=== PATIENT | female | born 1990 | race Caucasian/White ===

== ENCOUNTER 2016-10-31 07:45 | Emergency (ER) | payer BC ==
[2016-10-31 08:02] VITALS: BP 144/83
--- NOTE | 2016-10-31 08:44 | EDM.PDOC ---
ED HPI ENT - General Chief Complaint: ENT Problem Stated Complaint: FEVER,CHILLS, COUGH, SORE THROAT Time Seen by Provider: 10/31/16 07:54 Source of Information: Reports: Patient History Limitations: Reports: No limitations - History of Present Illness INITIAL COMMENTS - FREE TEXT/NARRATIVE: History of present illness: [] Patient at 2 days of cold symptoms with cough, sore throat, fevers and chills. She has had strep several times the past and has been to hold that if she gets strep again she will need her tonsils taken out. Review of systems: As per history of present illness and below otherwise all systems reviewed and negative. Past medical history: As per history of present illness and as reviewed below otherwise noncontributory. Surgical history: As per history of present illness and as reviewed below otherwise noncontributory. Social history: No reported history of drug or alcohol abuse. Family history: As per history of present illness and as reviewed below otherwise noncontributory. Physical exam: General: Well developed, well nourished in NAD HEENT: Atraumatic, normocephalic, pupils reactive, negative for conjunctival pallor or scleral icterus, mucous membranes moist, throat clear, no exudate or erythema, neck supple, nontender, trachea midline. No stridor Lungs: Clear to auscultation, breath sounds equal bilaterally, chest nontender. Heart: S1S2, regular, negative for clicks, rubs, or JVD. Abdomen: Soft, nondistended, nontender. Negative for masses or hepatosplenomegaly. Negative for costovertebral tenderness. Pelvis: Stable nontender. Genitourinary: Deferred. Rectal: Deferred. Extremities: Atraumatic, negative for cords or calf pain. Neurovascular unremarkable. Neuro: Awake, alert, oriented. Cranial nerves II through XII unremarkable. Cerebellum unremarkable. Motor and sensory unremarkable throughout. Exam nonfocal. Diagnostics: [] Rapid strep negative Therapeutics: [] Impression: [] Viral URI Plan: [] Motrin and/or Tylenol for fevers and pain. Followup PMD return if symptoms worsen Definitive disposition and diagnosis as appropriate pending reevaluation and review of above. - Related Data Allergies/ADRs: Allergies Allergy/AdvReac Type Severity Reaction Status Date / Time Penicillins Allergy Hives Verified 04/08/16 08:00 Home Meds: Home Meds . [No Known Home Meds] 04/08/16 [History] Past Medical History - Past Health History Medical/Surgical History: Denies Medical/Surgical History Psychiatric History: Reports: None - Infectious Disease History Infectious Disease History: Reports: None Social & Family History - Family History Family Medical History: Noncontributory - Tobacco Use Smoking Status *Q: Current Every Day Smoker Years of Tobacco use: 5 Packs/Tins Daily: 0.5 Second Hand Smoke Exposure: No - Caffeine Use Caffeine Use: Reports: Coffee, Energy drinks - Recreational Drug Use Recreational Drug Use: No ED ROS ENT - Review of Systems Review Of Systems: See Below (See history of present illness) ED EXAM, ENT - Physical Exam Exam: See Below (See history of present illness) Course - Vital Signs Last Recorded V/S: Last Vital Signs Temp 36.4 C 10/31/16 07:56 Pulse 107 H 10/31/16 07:56 Resp 18 10/31/16 07:56 BP 144/83 H 10/31/16 07:56 Pulse Ox 95 10/31/16 07:56 - Orders/Labs/Meds Orders: Active Orders 24 hr Category Date Time Status CULTURE STREP A CONFIRMATION [RM] Stat Lab 10/31/16 08:14 Results STREP SCRN A RAPID W CULT CONF [RM] Stat Lab 10/31/16 08:14 Results Departure - Departure Time of Disposition: 08:43 Disposition: Home, Self-Care 01 Condition: good Clinical Impression: Viral URI Forms: ED Department Discharge Additional Instructions: The following information is given to patients seen in the emergency department who are being discharged to home. This information is to outline your options for follow-up care. We provide all patients seen in our emergency department with a follow-up referral. The need for follow-up, as well as the timing and circumstances, are variable depending upon the specifics of your emergency department visit. If you don't have a primary care physician on staff, we will provide you with a referral. We always advise you to contact your personal physician following an emergency department visit to inform them of the circumstance of the visit and for follow-up with them and/or the need for any referrals to a consulting specialist. The emergency department will also refer you to a specialist when appropriate. This referral assures that you have the opportunity for follow-up care with a specialist. All of these measure are taken in an effort to provide you with optimal care, which includes your follow-up. Under all circumstances we always encourage you to contact your private physician who remains a resource for coordinating your care. When calling for follow-up care, please make the office aware that this follow-up is from your recent emergency room visit. If for any reason you are refused follow-up, please contact the [facility] Emergency Department at and asked to speak to the emergency department charge nurse. Tylenol or Motrin for pain followup PMD [facility] [address] [place] [id number] - My Orders Last 24 Hours: My Active Orders 10/31/16 08:14 CULTURE STREP A CONFIRMATION [RM] Stat STREP SCRN A RAPID W CULT CONF [RM] Stat - Assessment/Plan Last 24 Hours: My Active Orders 10/31/16 08:14 CULTURE STREP A CONFIRMATION [RM] Stat STREP SCRN A RAPID W CULT CONF [RM] Stat
== END 2016-10-31 08:55 | disposition home or self-care (01) ==
LOC: MW.ED 07:45
DX: J06.9 Acute upper respiratory infection, unspecified (principal); B97.89 Other viral agents as the cause of diseases classified elsewhere; F17.210 Nicotine dependence, cigarettes, uncomplicated; Z88.0 Allergy status to penicillin
CPT/HCPCS: 87081; 87880; 99282; 99283

== ENCOUNTER 2017-07-21 11:04 | Emergency (ER) | payer BC ==
--- NOTE | 2017-07-21 11:32 | EDM.PDOC ---
ED HPI GENERAL MEDICAL PROBLEM - General Chief Complaint: Abdominal Pain Stated Complaint: ABDOMINAL PAIN Time Seen by Provider: 07/21/17 11:28 Source of Information: Reports: Patient History Limitations: Reports: No Limitations - History of Present Illness INITIAL COMMENTS - FREE TEXT/NARRATIVE: HISTORY AND PHYSICAL: []27-year-old female presenting with abdominal pain History of Present Illness: []She's noticed this pain for the last day and half denies any changes in bowel habits Review of Systems: As per history of present illness and below otherwise all systems reviewed and negative. Past medical history: As per history of present illness and as reviewed below otherwise noncontributory. Surgical history: As per history of present illness and as reviewed below otherwise noncontributory. Social history: No reported history of drug or alcohol abuse. Family history: As per history of present illness and as reviewed below otherwise noncontributory. Physical exam: Alert and oriented female speaking in full sentences she is quite uncomfortable. No shortness of breath with speaking HEENT: Atraumatic, normocehpalic, pupils reactive, negative for conjunctival pallor or scleral icterus, mucous membranes moist, throat clear, neck supple, nontender, trachea midline. Tympanic membranes without erythema throat is clear Lungs: Clear to auscultation, breath sounds equal bilaterally, chest non tender. Good inspiratory expiratory effort is appreciated Heart: S1S2, regular, negative for clicks, rubs, or JVD. Abdomen: Soft, nondistended, tender with palpation to the lower pelvis. Negative for masses or hepatossplenmegaly. Negative for costovertebral tenderness. Pelvis: Stable nontender. Genitourinary: Deferred. Rectal: Deferred Extremities: Atraumatic, negative for cords or calf pain. Neurovascular unremarkable. Neuro: Awake, alert, oriented. Cranial nerves II through XII unremarkable. Cerebellum unremarkable. Motor and sensory unremarkable throughout. Exam nonfocal. Diagnostics: [CBC and urinalysis flat and upright] Therapeutics: [] Impression: [Urinary tract infection] Plan: [Discharged to home Prescription for ciprofloxacin twice a day for 5 days Prescription for Pyridium 100 mg 3 times a day 3 days Follow-up with your primary care provider once the patient has been completed or if symptoms worsen] Definitive disposition and diagnosis as appropriate pending reevaluation and review of above. Onset: Gradual Duration: Day(s): (3), Getting Worse Location: Reports: Abdomen, Pelvis Pelvic Pain Score (Numeric/FACES): 8 Bilateral Lower Abdominal Pain Score (Numeric/FACES): 8 - Related Data Allergies Allergy/AdvReac Type Severity Reaction Status Date / Time Penicillins Allergy Hives Verified 07/21/17 11:23 Home Meds: Home Meds Ciprofloxacin [Ciprofloxacin HCl] 500 mg PO BID #10 tablet 07/21/17 [Rx] Phenazopyridine [Pyridium] 100 mg PO TID #9 tablet 07/21/17 [Rx] Vilazodone Hydrochloride [Viibryd] 20 mg PO DAILY 07/21/17 [History] Past Medical History - Past Health History Medical/Surgical History: Denies Medical/Surgical History Psychiatric History: Reports: None - Infectious Disease History Infectious Disease History: Reports: None Social & Family History - Family History Family Medical History: Noncontributory - Tobacco Use Smoking Status *Q: Current Every Day Smoker Years of Tobacco use: 5 Packs/Tins Daily: 0.5 Second Hand Smoke Exposure: No - Caffeine Use Caffeine Use: Reports: Coffee, Energy Drinks - Recreational Drug Use Recreational Drug Use: No ED ROS GENERAL - Review of Systems Review Of Systems: ROS reveals no pertinent complaints other than HPI. ED EXAM, GI/ABD - Physical Exam Exam: See Below Course - Vital Signs Last Recorded V/S: Last Vital Signs Temp 37.0 C 07/21/17 13:22 Pulse 69 07/21/17 13:22 Resp 18 07/21/17 11:16 BP 110/69 07/21/17 13:22 Pulse Ox 94 L 07/21/17 13:22 - Orders/Labs/Meds Orders: Active Orders 24 hr Category Date Time Status CULTURE URINE [RM] Stat Lab 07/21/17 11:38 Received Labs: Laboratory Tests 07/21/17 07/21/17 07/21/17 Range/Units 11:38 11:45 11:45 WBC 9.09 (4.0-11.0) K/uL RBC 4.91 (4.30-5.90) M/uL Hgb 15.1 (12.0-16.0) g/dL Hct 44.6 (36.0-46.0) % MCV 90.8 (80.0-98.0) fL MCH 30.8 (27.0-32.0) pg MCHC 33.9 (31.0-37.0) g/dL RDW Std Deviation 41.8 (28.0-62.0) fl RDW Coeff of Mirtha 13 (11.0-15.0) % Plt Count 248 (150-400) K/uL MPV 10.50 (7.40-12.00) fL Neut % (Auto) 63.6 (48.0-80.0) % Lymph % (Auto) 27.6 (16.0-40.0) % [place] % (Auto) 7.2 (0.0-15.0) % Eos % (Auto) 1.5 (0.0-7.0) % Baso % (Auto) 0.1 (0.0-1.5) % Neut # (Auto) 5.8 H (1.4-5.7) K/uL Lymph # (Auto) 2.5 H (0.6-2.4) K/uL [place] # (Auto) 0.7 (0.0-0.8) K/uL Eos # (Auto) 0.1 (0.0-0.7) K/uL Baso # (Auto) 0.0 (0.0-0.1) K/uL Nucleated RBC % 0.0 /100WBC Nucleated RBCs # 0 K/uL Sodium 140 (136-146) mmol/L Potassium 3.9 (3.5-5.1) mmol/L Chloride 110 (98-110) mmol/L Carbon Dioxide 22 (21-31) mmol/L BUN 10 (6.0-23.0) mg/dL Creatinine 0.8 (0.6-1.5) mg/dL Est Cr Clr Drug Dosing 76.54 mL/min Estimated GFR (MDRD) > 60.0 ml/min Glucose 71 (60-110) mg/dL Calcium 9.3 (8.8-10.8) mg/dL Total Bilirubin 0.2 (0.1-1.5) mg/dL AST 17 (5-40) IU/L ALT 16 (8-54) IU/L Alkaline Phosphatase 48 (40-150) Total Protein 7.2 (6.0-8.0) g/dL Albumin 4.1 (3.5-5.0) g/dL Globulin 3.1 (2.0-3.5) g/dL Albumin/Globulin Ratio 1.3 (1.3-2.8) HCG, Qual (NEG) Urine Color YELLOW Urine Appearance CLOUDY Urine pH 6.0 (5.0-8.0) Ur Specific [place] >= 1.030 (1.001-1.035) Urine Protein NEGATIVE (NEGATIVE) mg/dL Urine Glucose (UA) NEGATIVE (NEGATIVE) mg/dL Urine Ketones NEGATIVE (NEGATIVE) mg/dL Urine Occult Blood NEGATIVE (NEGATIVE) Urine Nitrite NEGATIVE (NEGATIVE) Urine Bilirubin NEGATIVE (NEGATIVE) Urine Urobilinogen 0.2 (<2.0) EU/dL Ur Leukocyte Esterase TRACE (NEGATIVE) Urine RBC 0-1 (0-2/HPF) Urine WBC 5-8 (0-5/HPF) Ur Epithelial Cells FEW (NONE-FEW) Amorphous Sediment HEAVY (NEGATIVE) Urine Bacteria 1+ H (NEGATIVE) 07/21/17 Range/Units 11:45 WBC (4.0-11.0) K/uL RBC (4.30-5.90) M/uL Hgb (12.0-16.0) g/dL Hct (36.0-46.0) % MCV (80.0-98.0) fL MCH (27.0-32.0) pg MCHC (31.0-37.0) g/dL RDW Std Deviation (28.0-62.0) fl RDW Coeff of Mirtha (11.0-15.0) % Plt Count (150-400) K/uL MPV (7.40-12.00) fL Neut % (Auto) (48.0-80.0) % Lymph % (Auto) (16.0-40.0) % [place] % (Auto) (0.0-15.0) % Eos % (Auto) (0.0-7.0) % Baso % (Auto) (0.0-1.5) % Neut # (Auto) (1.4-5.7) K/uL Lymph # (Auto) (0.6-2.4) K/uL [place] # (Auto) (0.0-0.8) K/uL Eos # (Auto) (0.0-0.7) K/uL Baso # (Auto) (0.0-0.1) K/uL Nucleated RBC % /100WBC Nucleated RBCs # K/uL Sodium (136-146) mmol/L Potassium (3.5-5.1) mmol/L Chloride (98-110) mmol/L Carbon Dioxide (21-31) mmol/L BUN (6.0-23.0) mg/dL Creatinine (0.6-1.5) mg/dL Est Cr Clr Drug Dosing mL/min Estimated GFR (MDRD) ml/min Glucose (60-110) mg/dL Calcium (8.8-10.8) mg/dL Total Bilirubin (0.1-1.5) mg/dL AST (5-40) IU/L ALT (8-54) IU/L Alkaline Phosphatase (40-150) Total Protein (6.0-8.0) g/dL Albumin (3.5-5.0) g/dL Globulin (2.0-3.5) g/dL Albumin/Globulin Ratio (1.3-2.8) HCG, Qual NEGATIVE (NEG) Urine Color Urine Appearance Urine pH (5.0-8.0) Ur Specific [place] (1.001-1.035) Urine Protein (NEGATIVE) mg/dL Urine Glucose (UA) (NEGATIVE) mg/dL Urine Ketones (NEGATIVE) mg/dL Urine Occult Blood (NEGATIVE) Urine Nitrite (NEGATIVE) Urine Bilirubin (NEGATIVE) Urine Urobilinogen (<2.0) EU/dL Ur Leukocyte Esterase (NEGATIVE) Urine RBC (0-2/HPF) Urine WBC (0-5/HPF) Ur Epithelial Cells (NONE-FEW) Amorphous Sediment (NEGATIVE) Urine Bacteria (NEGATIVE) Departure - Departure Time of Disposition: 14:39 Disposition: Home, Self-Care 01 Condition: Good Clinical Impression: UTI (urinary tract infection) - Discharge Information Prescriptions: Ciprofloxacin [Ciprofloxacin HCl] 500 mg PO BID #10 tablet Phenazopyridine [Pyridium] 100 mg PO TID #9 tablet Referrals: Zabrina Tuttle DO [Primary Care Provider] - Forms: ED Department Discharge Additional Instructions: The following information is given to patients seen in the emergency department who are being discharged to home. This information is to outline your options for follow-up care. We provide all patients seen in our emergency department with a follow-up referral. The need for follow-up, as well as the timing and circumstances, are variable depending upon the specifics of your emergency department visit. If you don't have a primary care physician on staff, we will provide you with a referral. We always advise you to contact your personal physician following an emergency department visit to inform them of the circumstance of the visit and for follow-up with them and/or the need for any referrals to a consulting specialist. The emergency department will also refer you to a specialist when appropriate. This referral assures that you have the opportunity for followup care with a specialist. All of these measure are taken in an effort to provide you with optimal care, which includes your followup. Under all circumstances we always encourage you to contact your private physician who remains a resource for coordinating your care. When calling for followup care, please make the office aware that this follow-up is from your recent emergency room visit. If for any reason you are refused follow-up, please contact the [facility] emergency department at and asked to speak to the emergency department charge nurse. Prescriptions have been sent to your pharmacy of choice Ciprofloxacin 500 mg twice a day 5 days Pyridium 100 mg 3 times a day 3 days Follow-up with your primary care provider wants medication has been completed Worsening of symptoms return for reevaluation or see her provider sooner - My Orders Last 24 Hours: My Active Orders 07/21/17 11:38 CULTURE URINE [RM] Stat - Assessment/Plan Last 24 Hours: My Active Orders 07/21/17 11:38 CULTURE URINE [RM] Stat
[2017-07-21 12:19] LABS: CHLORIDE,CL 110 mmol/L (98-110); SODIUM,NA 140 mmol/L (136-146)
--- NOTE | 2017-07-21 12:59 | CR ---
EXAMINATION: Abdomen HISTORY: Pain COMPARISON: None TECHNIQUE: AP and upright views FINDINGS: There is no free air under the diaphragm. There is a nonobstructive bowel gas pattern. No o rganomegaly or abnormal calcifications identified. An IUD projects over the lower pelvis. Visualized osseous structures appear normal. IMPRESSION: Grossly unremarkable abdominal radiographs.
[2017-07-21 15:22] VITALS: BP 124/73
== END 2017-07-21 15:18 | disposition home or self-care (01) ==
LOC: MW.ED 11:04
DX: N39.0 Urinary tract infection, site not specified (principal); F17.210 Nicotine dependence, cigarettes, uncomplicated; Z88.0 Allergy status to penicillin; Z79.899 Other long term (current) drug therapy
CPT/HCPCS: 36415; 74020; 74020-26; 80053; 81001; 84703; 85025; 87086; 99282; 99284

== ENCOUNTER 2018-04-27 06:33 | Emergency (ER) | payer BC ==
[2018-04-27] MEDS ORDERED: Ketorolac 60 MG/2 ML SDV IM ONE (07:03)
--- NOTE | 2018-04-27 07:15 | EDM.PDOC ---
ED HPI GENERAL MEDICAL PROBLEM - General Chief Complaint: Lower Extremity Injury/Pain Stated Complaint: RIGHT ANKLE PAIN Time Seen by Provider: 04/27/18 07:03 - History of Present Illness INITIAL COMMENTS - FREE TEXT/NARRATIVE: HISTORY AND PHYSICAL: History of present illness: Patient is a 28-year-old female presents with concern of acute injury to her right ankle scarred yesterday when she walked into a board striking the medial aspect of her right ankle. Review of systems: As per history of present illness and below otherwise all systems reviewed and negative. Past medical history: As per history of present illness and as reviewed below otherwise noncontributory. Surgical history: As per history of present illness and as reviewed below otherwise noncontributory. Social history: No reported history of drug or alcohol abuse. Family history: As per history of present illness and as reviewed below otherwise noncontributory. Physical exam: HEENT: Atraumatic, normocephalic, pupils reactive, negative for conjunctival pallor or scleral icterus, mucous membranes moist, throat clear, neck supple, nontender, trachea midline. Lungs: Clear to auscultation, breath sounds equal bilaterally, chest nontender. Heart: S1S2, regular, negative for clicks, rubs, or JVD. Abdomen: Soft, nondistended, nontender. Negative for masses or hepatosplenomegaly. Negative for costovertebral tenderness. Pelvis: Stable nontender. Genitourinary: Deferred. Rectal: Deferred. Extremities: Minor abrasion noted over the medial malleolus region with some mild tenderness dictation or gross deformity is minimal swelling Achilles tendon is intact CMS and neurovascular exam are unremarkable Neuro: Awake, alert, oriented. Cranial nerves II through XII unremarkable. Cerebellum unremarkable. Motor and sensory unremarkable throughout. Exam nonfocal. Diagnostics: X-ray Therapeutics: Toradol 60 mg IM Impression: #1 acute right ankle injury Definitive disposition and diagnosis as appropriate pending reevaluation and review of above. Right Ankle Pain Score (Numeric/FACES): 8 - Related Data Allergies Allergy/AdvReac Type Severity Reaction Status Date / Time Penicillins Allergy Hives Verified 04/27/18 07:03 Home Meds: Home Meds . [No Known Home Meds] 04/27/18 [History] Past Medical History - Past Health History Medical/Surgical History: Denies Medical/Surgical History Psychiatric History: Reports: None - Infectious Disease History Infectious Disease History: Reports: Chicken Pox Social & Family History - Family History Family Medical History: Noncontributory - Tobacco Use Smoking Status *Q: Current Every Day Smoker Years of Tobacco use: 8 Packs/Tins Daily: 0.5 - Caffeine Use Caffeine Use: Reports: Coffee, Energy Drinks - Recreational Drug Use Recreational Drug Use: No Review of Systems - Review of Systems Review Of Systems: ROS reveals no pertinent complaints other than HPI. ED EXAM, GENERAL - Physical Exam Exam: See Below (See dictation) Course - Vital Signs Last Recorded V/S: Last Vital Signs Temp 36.0 C 04/27/18 07:01 Pulse 90 04/27/18 07:01 Resp 18 04/27/18 07:01 BP 149/97 H 04/27/18 07:01 Pulse Ox 100 04/27/18 07:01 - Orders/Labs/Meds Orders: Active Orders 24 hr Category Date Time Status Ankle Min 3V Rt [CR] Stat Exams 04/27/18 07:03 Ordered Meds: Medications Discontinued Medications Generic Name Dose Route Start Last Admin Trade Name Moisesq PRN Reason Stop Dose Admin Ketorolac Tromethamine 60 mg 04/27/18 07:03 04/27/18 07:09 Toradol IM 04/27/18 07:04 60 mg ONETIME ONE Administration Departure - Departure Time of Disposition: 07:14 Disposition: Home, Self-Care 01 Condition: Good Clinical Impression: Ankle injury - Discharge Information *PRESCRIPTION DRUG MONITORING PROGRAM REVIEWED*: Not Applicable *COPY OF PRESCRIPTION DRUG MONITORING REPORT IN PATIENT GABRIELA: Not Applicable Referrals: Zabrina Tuttle DO [Primary Care Provider] - Additional Instructions: The following information is given to patients seen in the emergency department who are being discharged to home. This information is to outline your options for follow-up care. We provide all patients seen in our emergency department with a follow-up referral. The need for follow-up, as well as the timing and circumstances, are variable depending upon the specifics of your emergency department visit. If you don't have a primary care physician on staff, we will provide you with a referral. We always advise you to contact your personal physician following an emergency department visit to inform them of the circumstance of the visit and for follow-up with them and/or the need for any referrals to a consulting specialist. The emergency department will also refer you to a specialist when appropriate. This referral assures that you have the opportunity for followup care with a specialist. All of these measure are taken in an effort to provide you with optimal care, which includes your followup. Under all circumstances we always encourage you to contact your private physician who remains a resource for coordinating your care. When calling for followup care, please make the office aware that this follow-up is from your recent emergency room visit. If for any reason you are refused follow-up, please contact the [facility] emergency department at and asked to speak to the emergency department charge nurse. Zac wrap crutches as directed Motrin/Tylenol as directed to return as needed as discussed - My Orders Last 24 Hours: My Active Orders 04/27/18 07:03 Ankle Min 3V Rt [CR] Stat - Assessment/Plan Last 24 Hours: My Active Orders 04/27/18 07:03 Ankle Min 3V Rt [CR] Stat
[2018-04-27 08:02] VITALS: BP 146/94
--- NOTE | 2018-04-27 14:39 | CR ---
EXAM DATE: 04/27/18 PATIENT'S AGE: 28 Patient: LENIN LAY Facility: [place], [place] Site . Site : 1990 Study: XRay Extremity Right ankle [id number]/[id number] 7:40:27 AM Ordering Physician: Beti Taylor Final Report: INDICATION: pain. pt states injury to ankle last night. FINDINGS: Three views of the right ankle show no evidence of acute fracture or dislocation. No other bony or soft tissue abnormalities identified. Dictated by Matias Saucedo MD @ 04/27/2018 8:12:00 AM Dictated by: Matias Saucedo MD @ 04/27/2018 08:12:08 (Electronic Signature) Report Signed by Proxy. WALDEMAR
== END 2018-04-27 07:56 | disposition home or self-care (01) ==
LOC: MW.ED 06:33
DX: S90.511A Abrasion, right ankle, initial encounter (principal); R22.41 Localized swelling, mass and lump, right lower limb; F17.210 Nicotine dependence, cigarettes, uncomplicated; W22.8XXA Striking against or struck by other objects, initial encounter
CPT/HCPCS: 73610; 96372; 99283; J1885

== ENCOUNTER 2019-03-08 16:14 | Emergency (ER) | payer SELFPAY ==
[2019-03-08 16:42] VITALS: BP 138/90
--- NOTE | 2019-03-08 17:13 | EDM.PDOC ---
ED HPI GENERAL MEDICAL PROBLEM - General Chief Complaint: Lower Extremity Injury/Pain Stated Complaint: KNEE Time Seen by Provider: 03/08/19 16:59 Source of Information: Reports: Patient - History of Present Illness INITIAL COMMENTS - FREE TEXT/NARRATIVE: HISTORY AND PHYSICAL: History of present illness: A year-old female presents to the emergency department today with concerns of continued right knee discomfort and swelling related to a fall 2 days ago. She indicates she was at a gas station and carrying two items in her hands and tripped falling directly onto her right knee upon the pavement at the gas station. There is noted scabbed over abrasions to the right knee and bilateral posterior elbows. She denies hitting her head. There is noted erythema around the patella and soft tissue swelling. She indicates that her lower extremity is swollen as her boot feels tight. Review of systems: As per history of present illness and below otherwise all systems reviewed and negative. Past medical history: As per history of present illness and as reviewed below otherwise noncontributory. Surgical history: As per history of present illness and as reviewed below otherwise noncontributory. Social history: No reported history of drug or alcohol abuse. Family history: As per history of present illness and as reviewed below otherwise noncontributory. Physical exam: General: Well-developed well-nourished 29-year-old female. In mild discomfort. HEENT: Atraumatic, normocephalic, pupils reactive, negative for conjunctival pallor or scleral icterus, mucous membranes moist, throat clear, neck supple, nontender, trachea midline. Lungs: Clear to auscultation, breath sounds equal bilaterally, chest nontender. Heart: S1S2, regular, negative for clicks, rubs, or JVD. Abdomen: Soft, nondistended, nontender. Negative for masses or hepatosplenomegaly. Negative for costovertebral tenderness. Pelvis: Stable nontender. Genitourinary: Deferred. Rectal: Deferred. Extremities: Traumatic injury to right knee, soft tissue swelling. Trace non- pitting swelling to right lower extremity. Slight erythema to upper thigh and surrounding right patella. Negative for cords or calf pain. Neurovascular unremarkable. Skin: Intact, warm, dry. No lesions, rashes are noted. Neuro: Awake, alert, oriented. Cranial nerves II through XII unremarkable. Cerebellum unremarkable. Motor and sensory unremarkable throughout. Exam nonfocal. Notes: Patient was comfortable while in the ED and refrained from taking anything for pain as she is driving and has her little boy along. Diagnostics: 3 view x-ray of right knee Therapeutics: Right knee immobilizer Diclofenac 75 mg BID Impression: Right knee injury Plan: Ice and elevate rest as discussed Take diclofenac as ordered and discussed for pain Follow-up with Ortho provider as discussed if continued issues with the knee May get soft knee brace for additional support if needed Definitive disposition and diagnosis as appropriate pending reevaluation and review of above. Right Knee Pain Score (Numeric/FACES): 8 - Related Data Allergies Allergy/AdvReac Type Severity Reaction Status Date / Time Penicillins Allergy Hives Verified 03/08/19 16:38 Home Meds: Home Meds . [No Known Home Meds] 04/27/18 [History] Past Medical History - Past Health History Medical/Surgical History: Denies Medical/Surgical History Psychiatric History: Reports: None - Infectious Disease History Infectious Disease History: Reports: Chicken Pox Social & Family History - Family History Family Medical History: Noncontributory - Tobacco Use Smoking Status *Q: Current Every Day Smoker Years of Tobacco use: 10 Packs/Tins Daily: 0.5 - Caffeine Use Caffeine Use: Reports: Coffee, Energy Drinks - Recreational Drug Use Recreational Drug Use: No Review of Systems - Review of Systems Review Of Systems: ROS reveals no pertinent complaints other than HPI. ED EXAM, GENERAL - Physical Exam Exam: See Below (See dictation) Course - Vital Signs Last Recorded V/S: Last Vital Signs Temp 36.2 C 03/08/19 16:38 Pulse 87 03/08/19 16:38 Resp 18 03/08/19 16:38 BP 138/90 03/08/19 16:38 Pulse Ox 96 03/08/19 16:38 Departure - Departure Time of Disposition: 18:21 Disposition: Home, Self-Care 01 Condition: Good Clinical Impression: Right knee injury Qualifiers: Encounter type: initial encounter Qualified Code(s): S89.91XA - Unspecified injury of right lower leg, initial encounter - Discharge Information Referrals: PCP,Unknown [Primary Care Provider] - Forms: ED Department Discharge Additional Instructions: The following information is given to patients seen in the emergency department who are being discharged to home. This information is to outline your options for follow-up care. We provide all patients seen in our emergency department with a follow-up referral. The need for follow-up, as well as the timing and circumstances, are variable depending upon the specifics of your emergency department visit. If you don't have a primary care physician on staff, we will provide you with a referral. We always advise you to contact your personal physician following an emergency department visit to inform them of the circumstance of the visit and for follow-up with them and/or the need for any referrals to a consulting specialist. The emergency department will also refer you to a specialist when appropriate. This referral assures that you have the opportunity for follow-up care with a specialist. All of these measure are taken in an effort to provide you with optimal care, which includes your follow-up. Under all circumstances we always encourage you to contact your private physician who remains a resource for coordinating your care. When calling for follow-up care, please make the office aware that this follow-up is from your recent emergency room visit. If for any reason you are refused follow-up, please contact the [facility] Emergency Department at and asked to speak to the emergency department charge nurse. [facility] - Primary Care [address] [place] [id number] Ice and elevate rest as discussed Take diclofenac as ordered and discussed for pain Follow-up with Ortho provider as discussed if continued issues with the knee May get soft knee brace for additional support if needed
--- NOTE | 2019-03-08 18:09 | CR ---
Indication: Fall 5 days ago Technique: Three views right knee Comparison: None Findings: Bones: Alignment is normal. No fractures or bone lesions. Joint spaces: Unremarkable. Soft tissues: Unremarkable. Impression: Negative. Dictated by Marina Parham MD @ Mar 08 2019 6:06PM Signed by Dr. Marina Parham @ Mar 08 2019 6:08PM
== END 2019-03-08 18:29 | disposition home or self-care (01) ==
LOC: MW.ED 16:14
DX: S89.91XA Unspecified injury of right lower leg, initial encounter (principal); F17.210 Nicotine dependence, cigarettes, uncomplicated; Z88.0 Allergy status to penicillin; W01.198A Fall on same level from slipping, tripping and stumbling with subsequent striking against other object, initial encounter; Y92.524 Gas station as the place of occurrence of the external cause
CPT/HCPCS: 73562-26-RT; 73562-RT; 99283-25

== ENCOUNTER 2021-11-03 23:43 | Emergency (ER) | payer BC ==
[2021-11-04] MEDS ORDERED: Lidocaine 1% 5 ML VIAL INJECT ONE (00:12)
[2021-11-04] MEDS ORDERED: Bupivacaine 0.5% 10 ML SDV INJECT ONE (00:12)
[2021-11-04 01:24] VITALS: BP 108/54; PULSE 99
== END 2021-11-04 01:24 | disposition home or self-care (01) ==
LOC: MW.ED 23:43
DX: S60.122A Contusion of left index finger with damage to nail, initial encounter (principal); Z88.0 Allergy status to penicillin; W23.0XXA Caught, crushed, jammed, or pinched between moving objects, initial encounter
CPT/HCPCS: 11730; 73120; 99283; J3490; 10140

== ENCOUNTER 2023-04-11 17:49 | Emergency (ER) | payer BC ==
[2023-04-11 18:18] LABS: APPEARANCE,URINE CLEAR; BILIRUBIN,URINE NEGATIVE (NEGATIVE); COLOR,URINE YELLOW; GLUCOSE,URINE NEGATIVE (NEGATIVE); KETONES,URINE NEGATIVE (NEGATIVE); LEUKOCYTE ESTERASE,URINE NEGATIVE (NEGATIVE); NITRITE,URINE NEGATIVE (NEGATIVE); OCCULT BLOOD,URINE NEGATIVE (NEGATIVE); PH,URINE 6.5 (5.0-8.0); PROTEIN,URINE NEGATIVE (NEGATIVE); UROBILINOGEN,URINE 0.2 EU/dL (<2.0)
[2023-04-11] MEDS ORDERED: Sulfamethoxazole/Trimethoprim 800-160 MG Tab PO ONE (19:56)
[2023-04-11 20:13] VITALS: BP 123/67; PULSE 68
== END 2023-04-11 20:12 | disposition home or self-care (01) ==
LOC: MW.ED 17:49
DX: N39.0 Urinary tract infection, site not specified (principal); Z88.0 Allergy status to penicillin
CPT/HCPCS: 81003; 81025; 99283; A9270; 99282